=== PATIENT | male | born 1960 | race Caucasian/White ===

== ENCOUNTER 2017-05-21 12:30 | Outpatient (RCR) | payer BC | END 2017-08-13 | disposition home or self-care (01) | LOC: WSPT | DX: M25.552 Pain in left hip (principal) ==

== ENCOUNTER → 2017-08-31 | Outpatient (CLI) | payer BC | LOC: COL.RAD 13:45 | DX: M48.061 Spinal stenosis, lumbar region without neurogenic claudication (principal); M71.38 Other bursal cyst, other site; M99.53 Intervertebral disc stenosis of neural canal of lumbar region | CPT/HCPCS: A9585 ==

== ENCOUNTER → 2019-08-26 | Outpatient (CLI) | payer BC | LOC: COL.VAS 08:26 | DX: M79.89 Other specified soft tissue disorders (principal) ==

== ENCOUNTER 2019-11-14 22:45 | Emergency (ER) | payer BC ==
[~2019-11-14] VITALS: Ht 182.9 cm; Wt 118.2 kg
[2019-11-14 22:47] VITALS: BP 161/83; PULSE 99; TEMP 98
== END 2019-11-14 23:16 | disposition left against medical advice (07) ==
LOC: COL.ER 22:45
DX: F10.120 Alcohol abuse with intoxication, uncomplicated (principal); S40.022A Contusion of left upper arm, initial encounter; S40.021A Contusion of right upper arm, initial encounter; W19.XXXA Unspecified fall, initial encounter

== ENCOUNTER → 2020-01-07 | Outpatient (CLI) | payer BC | LOC: COL.RAD 10:31 | DX: M79.89 Other specified soft tissue disorders (principal) | CPT/HCPCS: Q9967 ==

== ENCOUNTER → 2020-02-23 | Outpatient (CLI) | payer BC | LOC: COL.RAD 07:37 | DX: K80.20 Calculus of gallbladder without cholecystitis without obstruction (principal) | CPT/HCPCS: Q9967 ==

== ENCOUNTER → 2020-03-01 | Outpatient (CLI) | payer BC | LOC: COL.VAS 13:08 | DX: I51.7 Cardiomegaly (principal) ==

== ENCOUNTER → 2021-11-25 | Outpatient (CLI) | payer BC | LOC: COL.VAS 09:57 | DX: I34.0 Nonrheumatic mitral (valve) insufficiency (principal); J90 Pleural effusion, not elsewhere classified; R60.9 Edema, unspecified ==

== ENCOUNTER → 2021-11-29 | Outpatient (CLI) | payer BC ==
[2021-11-29 13:30] LABS: BASO # 0.1 K/mm3 (0.0-0.2); EOS # 0.1 K/mm3 (0.0-0.7); EOS % 1.9 % (0.0-4.0); HEMOGLOBIN 11.5 g/dl (13.5-18.0); LYMPH # 1.3 K/mm3 (1.2-3.4); LYMPH % 18.1 % (20.0-51.0); MEAN CELL VOLUME 95 fl (80.0-100.0); MEAN CORPUSCULAR HEMOGLOBIN 33 pg (27-31); MEAN CORPUSCULAR HGB CONC 34 g/dl (33.0-37.0); MONO # 0.5 K/mm3 (0.1-0.6); MONO % 7.7 % (1.7-9.3); PLATELET COUNT 170 K/mm3 (130-400); RED BLOOD COUNT 3.52 M/mm3 (4.20-5.60); REDCELL DISTRIBUTION WIDTH-CV 14.4 % (11.5-14.5)
[2021-11-29 13:32] LABS: HEMATOCRIT 33.5 % (42.0-52.0)
[2021-11-29 13:54] LABS: CALCIUM 9.3 mg/dL (8.4-10.2); CREATININE, serum 1.09 mg/dL (0.72-1.25); POTASSIUM 4.3 mmol/L (3.5-4.5)
== END ==
LOC: COL.LAB 12:55
PROVIDERS: Family Medicine
DX: L03.115 Cellulitis of right lower limb (principal)

== ENCOUNTER 2022-08-16 18:11 | Emergency (ER) | payer BC ==
[~2022-08-16] VITALS: Ht 180.3 cm; Wt 118.2 kg
[2022-08-16 19:19] LABS: HEMATOCRIT 40.9 % (42.0-52.0); HEMOGLOBIN 13.5 g/dl (13.5-18.0); MEAN CELL VOLUME 92 fl (80.0-100.0); MEAN CORPUSCULAR HEMOGLOBIN 30 pg (27-31); MEAN CORPUSCULAR HGB CONC 33 g/dl (33.0-37.0); MEAN PLATELET VOLUME 11.7 fl (7.4-10.4); PLATELET COUNT 179 K/mm3 (130-400); RED BLOOD COUNT 4.45 M/mm3 (4.20-5.60); REDCELL DISTRIBUTION WIDTH-CV 14.9 % (11.5-14.5)
[2022-08-16 19:43] LABS: BAND 11 % (0-10); EOSINOPHIL 1 % (0-4); LYMPHOCYTE 34 % (20.0-51.0); NEUTROPHILS 42 % (42.0-75.2); NUCLEATED RED BLOOD CELL 3 (0-6)
[2022-08-16 19:44] LABS: ANISOCYTOSIS 1+; HYPOCHROMIA 1+; PLATELET ESTIMATE NORMAL (NORMAL)
[2022-08-16 19:58] LABS: ALBUMIN 2.9 gm/dL (3.4-4.8); BILIRUBIN,TOTAL 0.8 mg/dL (0.2-1.2); C-REACTIVE PROTEIN 3.08 mg/dL (0.00-0.50); CALCIUM 8.7 mg/dL (8.4-10.2); CREATININE, serum 0.91 mg/dL (0.72-1.25); POTASSIUM 3.8 mmol/L (3.5-4.5); TOTAL PROTEIN 6.3 gm/dL (6.2-8.1)
[2022-08-16 21:08] LABS: INR 1.1 (0.8-3.0); PROTHROMBIN TIME 12.5 SECONDS (9.7-12.8)
[2022-08-16 21:57] VITALS: BP 125/88; PULSE 87; TEMP 98.4
[2022-08-16] MEDS ORDERED: ROXICODONE 55 MG/TAB PO ×2 (22:01→22:03)
[2022-08-16] MEDS ORDERED: NYSTATIN OR100 MU/ML PO (22:03)
== END 2022-08-16 22:20 | disposition home or self-care (01) ==
LOC: COL.ER 18:11
PROVIDERS: Emergency Medicine
DX: S40.022A Contusion of left upper arm, initial encounter (principal); S40.021A Contusion of right upper arm, initial encounter; S80.12XA Contusion of left lower leg, initial encounter; S80.11XA Contusion of right lower leg, initial encounter; B37.81 Candidal esophagitis; B37.0 Candidal stomatitis; R79.82 Elevated C-reactive protein (CRP); R77.0 Abnormality of albumin; E11.9 Type 2 diabetes mellitus without complications; K21.9 Gastro-esophageal reflux disease without esophagitis; Z79.899 Other long term (current) drug therapy; X58.XXXA Exposure to other specified factors, initial encounter
CPT/HCPCS: J2270; J3010

== ENCOUNTER 2022-08-24 10:58 | Day surgery (SDC) | payer BC ==
[~2022-08-24] VITALS: Ht 180.3 cm; Wt 118.3 kg
[~2022-08-24 10:58] MED LIST: NYSTATIN OR100 MU/ML PO; ROXICODONE 55 MG/TAB PO
[2022-08-24 11:34] VITALS: BP 148/74; PULSE 71; TEMP 96.4
[2022-08-24] MEDS ORDERED: ALDACTONE 25MG25 M1 PO (11:53)
[2022-08-24] MEDS ORDERED: CARAFATE 1GM1 G PO (11:53)
[2022-08-24] MEDS ORDERED: FOLIC ACID 11 MG/TA1 PO (11:54)
[2022-08-24] MEDS ORDERED: LASIX 40MG TABL40 MG PO (11:54)
[2022-08-24] MEDS ORDERED: TOPROL XL100 MG PO (11:55)
[2022-08-24] MEDS ORDERED: PRILOSEC 20MG20 MG PO (11:55)
[2022-08-24] MEDS ORDERED: ZETIA 10MG TAB10 MG PO (11:56)
[2022-08-24] MEDS ORDERED: PRINIVIL10 MG PO (11:56)
[2022-08-24] MEDS ORDERED: JARDIANCE25 PO (11:57)
[2022-08-24] MEDS ORDERED: ZOCOR 40MG40 MG PO (11:57)
[2022-08-24] MEDS ORDERED: SINGULAIR 110 MG/TAB PO (11:58)
[2022-08-24] MEDS ORDERED: LYRICA200 MG PO (11:58)
[2022-08-24] MEDS ORDERED: VITAMIN B12 1541 TAB PO (11:59)
[2022-08-24] MEDS ORDERED: ALEVE LIQCAPS PO (12:00)
[2022-08-24] MEDS ORDERED: EPA FISH OIL1 SGL PO (12:00)
[2022-08-24 12:35] VITALS: BP 117/64; PULSE 69; TEMP 96.7
[2022-08-24 12:45] VITALS: BP 127/66; PULSE 72
[2022-08-24] MEDS ORDERED: ROXICODONE 55 MG/TAB PO (12:45)
[2022-08-24] MEDS ORDERED: DIFLUCAN200 MG PO (12:45)
[2022-08-24 13:00] VITALS: BP 117/58; PULSE 71
--- NOTE | 2022-08-24 13:18 | NUR ---
1230- DR. SANCHEZ IN ROOM SPEAKING WITH PATIENT'S . 1235- PATIENT RETURNS TO [facility] [place] [facility] [place] CART. PT AWAKE AND ALERT. RESPIRATIONS UNLABORED. AMBULATED TO RECLINER CHAIR WITH 2:1 SBA. PT DENIES NAUSEA OR ABDOMINAL PAIN. HOOKED UP TO MONITOR AND VS OBTAINED. CALL LIGHT AT SIDE AND FAMILY PRESENT. 1240- PATIENT TOLERATING JUICE AND MUFFIN WITHOUT NAUSEA OR DIFFICULTY SWALLOWING. 1300- D/C INSTRUCTIONS REVIEWED WITH PATIENT. PT VERBALIZED UNDERSTANDING AND A COPY OF INSTRUCTIONS PROVIDED IN D/C FOLDER. 1310- PATIENT DRESSES SELF. 1318- PATIENT DISCHARGED FROM UNIT VIA W/C TO A PERSONAL VEHICLE. PT LEFT HOSPITAL IN STABLE CONDITION.
== END 2022-08-24 13:18 | disposition home or self-care (01) ==
LOC: SDCO 10:58
DX: K31.7 Polyp of stomach and duodenum (principal); K22.81 Esophageal polyp; K21.00 Gastro-esophageal reflux disease with esophagitis, without bleeding; K31.89 Other diseases of stomach and duodenum; K44.9 Diaphragmatic hernia without obstruction or gangrene; I85.00 Esophageal varices without bleeding; B37.0 Candidal stomatitis; Z79.899 Other long term (current) drug therapy
CPT/HCPCS: J2704; J7120

== ENCOUNTER 2024-01-04 16:57 | Emergency (ER) | payer BC ==
[~2024-01-04] VITALS: Ht 180.3 cm; Wt 118.2 kg
[~2024-01-04 16:57] MED LIST changes: +ALDACTONE 25MG25 M1 PO; +ALEVE LIQCAPS PO; +CARAFATE 1GM1 G PO; +DIFLUCAN200 MG PO; +EPA FISH OIL1 SGL PO; +FOLIC ACID 11 MG/TA1 PO; +JARDIANCE25 PO; +LASIX 40MG TABL40 MG PO; +LYRICA200 MG PO; +PRILOSEC 20MG20 MG PO; +PRINIVIL10 MG PO; +SINGULAIR 110 MG/TAB PO; +TOPROL XL100 MG PO; +VITAMIN B12 1541 TAB PO; +ZETIA 10MG TAB10 MG PO; +ZOCOR 40MG40 MG PO
[2024-01-04 17:35] LABS: BASO % 0.5 % (0.0-2.0); EOS # 0.1 K/mm3 (0.0-0.7); EOS % 0.8 % (0.0-4.0); GRAN # 4.5 K/mm3 (1.4-6.5); GRAN % 53.9 % (42.2-75.2); HEMATOCRIT 34.8 % (42.0-52.0); HEMOGLOBIN 11.7 g/dl (13.5-18.0); LYMPH # 2.6 K/mm3 (1.2-3.4); LYMPH % 30.7 % (20.0-51.0); MEAN CELL VOLUME 91 fl (80.0-100.0); MEAN CORPUSCULAR HEMOGLOBIN 31 pg (27-31); MEAN CORPUSCULAR HGB CONC 34 g/dl (33.0-37.0); MEAN PLATELET VOLUME 10.1 fl (7.4-10.4); MONO # 1.1 K/mm3 (0.1-0.6); PLATELET COUNT 217 K/mm3 (130-400); RED BLOOD COUNT 3.84 M/mm3 (4.20-5.60); REDCELL DISTRIBUTION WIDTH-CV 16.7 % (11.5-14.5)
[2024-01-04 17:59] LABS: ALANINE AMINOTRANSFERASE 24 U/L (0-55); ALBUMIN 3.7 g/dL (3.4-4.8); ALKALINE PHOSPHATASE 37 U/L (40-150); ANION GAP 17 mmol/L (7-16); AST,SGOT 17 U/L (5-34); BILIRUBIN,TOTAL 0.5 mg/dL (0.2-1.2); BLOOD UREA NITROGEN 28 mg/dL (8-26); CHLORIDE 93 mEq/L (98-107); CREATININE, serum 1.95 mg/dL (0.72-1.25); GLUCOSE 118 mg/dL (70-99); MAGNESIUM 2.5 mg/dL (1.6-2.6); POTASSIUM 4.4 mEq/L (3.5-4.5); SODIUM 129 mEq/L (136-145); TOTAL PROTEIN 6.7 g/dl (6.2-8.1)
[2024-01-04 18:11] LABS: TROPONIN-I < 0.010 ng/mL (0.00-0.033)
[2024-01-04] MEDS ORDERED: NS 1,000 ML IV ONE ×2 (18:15→19:15)
[2024-01-04 20:51] LABS: BILIRUBIN,TOTAL 0.5 mg/dL (0.2-1.2); CALCIUM 8.8 mg/dL (8.4-10.2); CREATININE, serum 1.76 mg/dL (0.72-1.25); POTASSIUM 4.5 mEq/L (3.5-4.5); TOTAL PROTEIN 5.4 g/dl (6.2-8.1)
[2024-01-04 21:15] VITALS: BP 125/61; PULSE 73; TEMP 98
== END 2024-01-04 21:35 | disposition home or self-care (01) ==
LOC: COL.ER 16:57
PROVIDERS: Emergency Medicine
DX: N17.9 Acute kidney failure, unspecified (principal); E86.0 Dehydration; I10 Essential (primary) hypertension; Z87.891 Personal history of nicotine dependence
CPT/HCPCS: J7030